=== PATIENT | male | born 1985 | race Two or more races ===

== ENCOUNTER 2025-02-02 13:24 | Emergency (ER) | payer BC, SELFPAY ==
[2025-02-02 14:36] VITALS: BP 148/103; PULSE 85; RESP 18; TEMP 36.5; O2SAT 95; BMI 38.8
--- NOTE | 2025-02-02 14:42 | EDNOTE_ITS ---
ED General RME/HPI General Chief complaint: Wound/Laceration Stated complaint: LAC L) THUMB Time Seen by Provider: 02/02/25 14:36 Arrival date/time: 02/02/25 13:24 Left thumb tip avulsion HPI patient cut his thumb tip with a salad knife while drinking beer yesterday 24 hours ago and it continues to ooze. Patient states his tetanus is current localized pain is 2-3 on a 10 scale nonradiating no prior history of similar events. Related Data Allergies Allergy/AdvReac Type Severity Reaction Status Date / Time No Known Allergies Allergy Verified 02/02/25 13:27 Review of Systems Review of Systems Narrative Review of Systems: GEN: No fever, no chills, no weight loss EYES: No discharge, no visual changes, no pain HEENT: No ear pain, no congestion, no sore throat PULM: No shortness of breath, no cough, no congestion CV: No chest pain, no dyspnea on exertion, no palpitations GI: No nausea, no vomiting, no diarrhea, no pain, no constipation : No frequency, no urgency, no dysuria MUSC/SKEL: No joint pain, no back pain SKIN: Positive for laceration no rash PSYCH: No hallucinations, no depression HEME/LYMPH: No easy bleeding or bruising tendencies NEURO: No weakness, no headache Past Medical History Social History SMOKING STATUS: Current some day smoker ED Exam Narrative Physical exam: [General: Obese in mild discomfort but not in any acute distress Head normocephalic HEENT: Within acceptable limits Neck is supple nontender Chest equal chest rise nontender to palpation Respiratory: Clear to auscultation no wheezes crackles or rubs CV: Rate rhythm is regular no murmurs rubs or clicks Abdomen is distended secondary to body habitus soft nontender no masses positive bowel sounds all 4 quadrants Back: No CVA tenderness no spinous process tenderness from cervical spine thoracic and lumbar spine Skin: Left first digit tip avulsion, active oozing with dressing removal approximately 1 cm x 1/2 cm in diameter. Otherwise skin is intact no petechiae rash induration ulceration or crepitus Extremities: Moving all extremity against resistance cap refill less than 2 seconds neurosensory intact Neuro: Awake alert oriented x3 Glascow coma 15 no focal deficits] Course Quality Measures none Vital Signs Vital signs: Vital Signs Temperature 97.7 F 02/02/25 14:36 Pulse Rate 85 02/02/25 14:36 Respiratory Rate 18 02/02/25 14:36 Blood Pressure 148/103 H 02/02/25 14:36 Pulse Oximetry (%) 95 02/02/25 14:36 Oxygen Delivery Method Room Air 02/02/25 14:36 Discharge Plan Plan Patient Disposition: HOME (Self Care) Patient condition on transfer: Stable Prescriptions/Referrals Referrals: Rogelio Mitchell MD [Physician, Orthopedics] - In 1 week Problem List Clinical Impression: Fingertip avulsion Patient/Caregiver Discharge Instructions Other Activity Instructions:: Keep the site clean and dry with a dressing on a regular basis cover with shower for the next week. Follow-up with your primary care doctor with any signs of infection return to the emergency room meetly for further evaluation. Education Materials: ED Skin Avulsion Print Language: American Stand Alone Forms: Maye Award Info., Work/School Release, Patient Portal Info Letter PA/[employer] Supervising Physician PA/[employer] Supervising Physician: Kevin BANSAL Clinical Information Provided by: patient Medical Records reviewed [facility] Meds/Rx considered, not ordered None Labs/Rad/Tests considered, not ordered None EKG EKG not done Labs Labs: none Imaging Imaging interpretation: none Diagnosis Differential Diagnosis ED Complaint MDM: Avulsion laceration abrasion
--- NOTE | 2025-02-02 15:15 | PC.NURSE ---
INJURY WAS CLEANED WTIH STERILE WATER, TRIPLE ABX AND PRESSURE DRESSING WAS APPLIED. PT TOLERATED WELL NO C/O PAIN/ DISCOMFORT AT THIS TIME.
== END 2025-02-02 15:17 | disposition home or self-care (01) ==
LOC: SERX 15:07
PROVIDERS: Emergency Provider Family Medicine
DX: S61.012A Laceration without foreign body of left thumb without damage to nail, initial encounter (principal); W26.0XXA Contact with knife, initial encounter
CPT/HCPCS: 99281